=== PATIENT | female | born 2000 | race Two or more races ===

== ENCOUNTER 2020-06-24 22:59 | Emergency (ER) | payer SELFPAY | END 2020-06-24 23:37 | disposition home or self-care (01) | LOC: CSHERS 22:59 | DX: N90.7 Vulvar cyst (principal) | CPT/HCPCS: 99283 ==

== ENCOUNTER 2021-03-24 02:12 | Emergency (ER) | payer SELFPAY ==
[2021-03-24] MEDS ORDERED: Lorazepam 2 MG/ML VIAL ONE (02:43)
[2021-03-24 02:46] LABS: #Basophils 0.1 10x3/uL (0.0-0.2); #Eosinphils 0.3 10x3/uL (0.0-0.5); #Monocytes 0.8 10x3/uL (0.0-1.1); #Neutrophils 11.4 10x3/uL (1.5-8.4); %Basophils 0.5 % (0.0-2.0); %Eosinophils 1.6 % (0.0-6.0); %Lymphocytes 18.9 % (18.0-47.0); %Monocytes 4.9 % (0.0-10.0); %Neutrophils 73.6 % (40.0-75.0); Hemoglobin 13.8 g/dL (12.0-15.5); Mean Corpuscular HGB CONC 33.2 g/dL (32.0-36.0); Mean Corpuscular Hemoglobin 29.1 pg (27.0-33.0); Mean Corpuscular Volume 87.6 fl (81.6-98.3); Mean Platelet Volume 11.4 fl (7.4-10.4); Platelet Count 298 10x3/uL (150-450); RBC Distribution Width 12.8 % (11.5-14.5); Red Blood Cell (RBC) Count 4.75 10x6/uL (3.90-5.03); White Blood Cell (WBC) Count 15.4 10x3/uL (3.5-10.5)
[2021-03-24 02:54] LABS: BHCG - Serum Negative (NEGATIVE); Pregs Control Background? CLEAR/WHITE (CLR/WHITE); Pregs Control Bar Appear? YES (CONTROL BAR)
[2021-03-24 03:00] LABS: ALT (SGPT) 13 U/L (8-55); AST (SGOT) 22 U/L (5-34); Albumin 4.6 g/dL (3.5-5.0); Alkaline Phosphatase 76 U/L (40-110); Anion Gap 16 mmol/L (10-20); BUN (Urea Nitrogen) 10 mg/dL (7.0-18.7); Bilirubin, Total 0.3 mg/dL (0.2-1.2); Calc. Creatinine Clearance 0 mL/min (70-130); Calcium 9.8 mg/dL (7.8-10.44); Carbon Dioxide 22 mmol/L (22-29); Chloride 103 mmol/L (98-107); Globulin 3.8 g/dL (2.4-3.5); Glucose 101 mg/dL (70-105); Magnesium 1.9 mg/dL (1.6-2.6); Protein, Total 8.4 g/dL (6.0-8.3); Sodium 138 mmol/L (136-145)
== END 2021-03-24 05:19 | disposition home or self-care (01) ==
LOC: CSHERS 02:12
DX: E86.0 Dehydration (principal); F41.9 Anxiety disorder, unspecified; R00.0 Tachycardia, unspecified
CPT/HCPCS: 71045; 80053; 83735; 84443; 84703; 85025; 93005; 96374; J2060

== ENCOUNTER 2021-04-09 18:55 | Emergency (ER) | payer SELFPAY ==
[2021-04-09] MEDS ORDERED: Ibuprofen 200 MG TAB ONE (19:46)
== END 2021-04-09 19:58 | disposition home or self-care (01) ==
LOC: CSHERS 18:55
DX: R07.9 Chest pain, unspecified (principal); R06.02 Shortness of breath
CPT/HCPCS: 71045; 93005

== ENCOUNTER 2021-04-11 12:18 | Emergency (ER) | payer SELFPAY | END 2021-04-11 13:45 | disposition home or self-care (01) | LOC: CSHERS 12:18 | DX: F41.9 Anxiety disorder, unspecified (principal); R00.2 Palpitations | CPT/HCPCS: 71045; 93005 ==

== ENCOUNTER 2021-06-11 12:55 | Emergency (ER) | payer SELFPAY | END 2021-06-11 13:48 | disposition left against medical advice (07) | LOC: CSHERS 12:55 | DX: Z53.21 Procedure and treatment not carried out due to patient leaving prior to being seen by health care provider (principal) ==

== ENCOUNTER 2021-08-22 16:34 | Emergency (ER) | payer SELFPAY ==
[2021-08-22 17:48] LABS: #Basophils 0.1 10x3/uL (0.0-0.2); #Monocytes 0.6 10x3/uL (0.0-1.1); %Basophils 0.5 % (0.0-2.0); %Eosinophils 0.1 % (0.0-6.0); %Monocytes 5.1 % (0.0-10.0); %Neutrophils 83.1 % (40.0-75.0); Hemoglobin 13.3 g/dL (12.0-15.5); Mean Corpuscular Volume 88.1 fl (81.6-98.3); Mean Platelet Volume 11.6 fl (7.4-10.4); Platelet Count 242 10x3/uL (150-450); RBC Distribution Width 12.2 % (11.5-14.5); Red Blood Cell (RBC) Count 4.44 10x6/uL (3.90-5.03)
[2021-08-22 17:55] LABS: BHCG - Serum Negative (NEGATIVE); Pregs Control Background? CLEAR/WHITE (CLR/WHITE); Pregs Control Bar Appear? YES (CONTROL BAR)
[2021-08-22 18:02] LABS: ALT (SGPT) 14 U/L (8-55); AST (SGOT) 19 U/L (5-34); Albumin 4.5 g/dL (3.5-5.0); Alkaline Phosphatase 65 U/L (40-110); Anion Gap 14 mmol/L (10-20); BUN (Urea Nitrogen) 7 mg/dL (7.0-18.7); Bilirubin, Total 0.9 mg/dL (0.2-1.2); Calc. Creatinine Clearance 0 mL/min (70-130); Calcium 9.7 mg/dL (7.8-10.44); Carbon Dioxide 25 mmol/L (22-29); Chloride 103 mmol/L (98-107); Glucose 99 mg/dL (70-105); Magnesium 1.7 mg/dL (1.6-2.6); Potassium 3.9 mmol/L (3.5-5.1); Protein, Total 7.5 g/dL (6.0-8.3); Sodium 138 mmol/L (136-145)
== END 2021-08-22 18:48 | disposition home or self-care (01) ==
LOC: CSHERS 16:34
DX: R00.2 Palpitations (principal); Z20.822 Contact with and (suspected) exposure to COVID-19
CPT/HCPCS: 71045; 80053; 83735; 84484; 84703; 85025; 93005; U0003; U0005